=== PATIENT | female | born 1990 | race African-American/Black ===

== ENCOUNTER 2023-12-26 14:47 | Emergency (ER) | payer OTHER ==
[~2023-12-26] VITALS: Ht 170.2 cm; Wt 97.5 kg
[2023-12-26 15:05] VITALS: BP 107/68; PULSE 87; RESP 16; TEMP 98.1; O2SAT 100
[2023-12-26] MEDS ORDERED: IBUP-2213 PO (16:11)
[2023-12-26] MEDS ORDERED: ATA25 PO (16:11)
[2023-12-26] MEDS ORDERED: HYD1C TP (16:11)
[2023-12-26 16:19] VITALS: BP 112/62; PULSE 88; RESP 16; TEMP 98.1; O2SAT 100
== END 2023-12-26 16:19 | disposition home or self-care (01) ==
LOC: MED 14:47
DX: L30.9 Dermatitis, unspecified (principal); M77.32 Calcaneal spur, left foot; Z79.899 Other long term (current) drug therapy
CPT/HCPCS: 73610; 81025; 99283

== ENCOUNTER 2024-03-15 01:59 | Emergency (ER) | payer OTHER ==
[~2024-03-15] VITALS: Ht 170.2 cm; Wt 103.0 kg
[~2024-03-15 01:59] MED LIST: ATA25 PO; HYD1C TP; IBUP-2213 PO
[2024-03-15 02:05] VITALS: BP 113/74; PULSE 71; RESP 16; TEMP 98; O2SAT 97
[2024-03-15 02:41] LABS: APPEARANCE,URINE CLEAR (CLEAR); BILIRUBIN,URINE NEGATIVE (NEGATIVE); BLOOD, URINE 3+ (NEGATIVE); COLOR,URINE YELLOW (YELLOW); LEUKOCYTE ESTERASE ,URINE TRACE (NEGATIVE); NITRITE, URINE NEGATIVE (NEGATIVE); PH,URINE 6.5 (5.0-9.0); PROTEIN,URINE 1+ (NEGATIVE); UGLUCOSE NEGATIVE (NEGATIVE)
[2024-03-15 02:42] LABS: ANION GAP 9.3 (8-16); CALCIUM 8.8 mg/dL (8.5-10.1); CARBON DIOXIDE 28.4 mmol/L (21-32); CREATININE 0.8 mg/dL (0.6-1.3); POTASSIUM 3.7 mmol/L (3.5-5.1)
[2024-03-15 02:44] LABS: RBC,URINE 20-50 /HPF (0-5)
[2024-03-15 02:45] LABS: BACTERIA,URINE 10-30 (MOD) /HPF (None Seen); MUCUS,URINE 1+ /LPF (None Seen); SQUAMOUS EPITHELIAL CELL,UR 4-10 (MOD) /LPF (0-3 (FEW))
[2024-03-15 02:50] LABS: BASOPHILS # (AUTO) 0.1 K/uL (0.00-0.22); BASOPHILS % (AUTO) 1.5 % (0.0-2.0); EOSINOPHILS # (AUTO) 0.3 K/uL (0-0.4); EOSINOPHILS % (AUTO) 4.1 % (0.0-4.0); LYMPHOCYTES # (AUTO) 2.8 K/uL (2.5-16.5); LYMPHOCYTES % (AUTO) 40.7 % (20.5-51.1); MEAN CORPUSCULAR HEMOGLOBIN 30 pg (27-31); MEAN CORPUSCULAR HGB CONC 33 g/dL (33-37); MONOCYTES # (AUTO) 0.4 K/uL (0.8-1.0); MONOCYTES % (AUTO) 5.8 % (1.7-9.3); NEUTROPHILS # (AUTO) 3.3 K/uL (1.8-7.7); NEUTROPHILS % (AUTO) 47.9 % (42.2-75.2); PLATELET COUNT (AUTO) 164 K/uL (140-450); RED BLOOD CELL COUNT(AUTO) 3.74 MIL/uL (4.20-5.40); WHITE BLOOD COUNT (AUTO) 6.9 K/uL (4.8-10.8)
[2024-03-15] MEDS: KETOROLAC 30 MG/ML VIAL IM ONE (02:54)
[2024-03-15] MEDS ORDERED: CEPH-588 PO (04:49)
[2024-03-15] MEDS ORDERED: MEDR10TA PO (04:49)
== END 2024-03-15 05:00 | disposition home or self-care (01) ==
LOC: MED 01:59
DX: N39.0 Urinary tract infection, site not specified (principal); D64.9 Anemia, unspecified; Z79.1 Long term (current) use of non-steroidal anti-inflammatories (NSAID); Z79.2 Long term (current) use of antibiotics; Z79.899 Other long term (current) drug therapy
CPT/HCPCS: 36415; 76856; 80048; 81001; 81025; 85025; 87086; 93976; 96372; 99285; J1885; Q0092